=== PATIENT | male | born 1960 | race Caucasian/White ===

== ENCOUNTER 2017-10-04 15:14 | Emergency (ER) | payer OTHER ==
[~2017-10-04] VITALS: Ht 177.8 cm; Wt 89.3 kg
[2017-10-04 15:20] VITALS: BP 148/107
== END 2017-10-04 17:30 | disposition home or self-care (01) ==
LOC: ED 15:14
DX: M79.662 Pain in left lower leg (principal); M79.661 Pain in right lower leg; I10 Essential (primary) hypertension
CPT/HCPCS: Q0092